=== PATIENT | male | born 1960 | race Hispanic/Latino ===

== ENCOUNTER 2018-05-15 18:20 | Emergency (ER) | payer OTHER ==
[2018-05-15 18:29] VITALS: BP 121/72
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
== END 2018-05-15 21:00 ==
LOC: ED 18:20
DX: S22.42XD Multiple fractures of ribs, left side, subsequent encounter for fracture with routine healing (principal); F17.200 Nicotine dependence, unspecified, uncomplicated; X58.XXXD Exposure to other specified factors, subsequent encounter